=== PATIENT | male | born 1950 | race Caucasian/White ===

== ENCOUNTER 2017-02-19 02:21 | Inpatient (IN) | payer OTHER, MEDICARE ==
[~2017-02-19] VITALS: Ht 175.3 cm; Wt 64.0 kg
[~2017-02-19 02:21] MED LIST: ALBU2.5V12 NEB; ATOR20TA PO; BENZ-16 PO; BUDE10.2 INH; BUPR100T5 PO; BUSP15TA14 PO; CITA20TA19 PO; DEXT30SU5 PO; DIAZ2TAB3 PO; DILT180C95 PO; IPRA3AMP9 IH; LEVO500T2 PO; OMEP20CA10 PO; PRED10TA23 PO; UREA227C4 TP; WARF5TAB7 PO
[2017-02-19] MEDS ORDERED: acetaminophen 325mg tablet PO STA (02:36)
[2017-02-19] MEDS ORDERED: normal saline 1000ML IV soln IV ONE (02:40)
[2017-02-19] MEDS ORDERED: albuterol 2.5 MG/3 ML nebule NEB ONE (02:55)
[2017-02-19] MEDS ORDERED: methylPREDNISolone sod succ 125mg/2ml vial IV ONE (02:55)
[2017-02-19] MEDS ORDERED: ipratropium/albuterol 3ml nebule NEB ONE (02:55)
[2017-02-19 03:06] LABS: BASOPHILS % (AUTO) 0.1 % (0-1); EOSINOPHILS # (AUTO) 0.1 X10'3 (0-0.9); EOSINOPHILS % (AUTO) 0.6 % (0-6); HEMATOCRIT 43.6 % (42.0-52.0); LYMPHOCYTES % (AUTO) 8.4 % (21-51); MEAN CORPUSCULAR HEMOGLOBIN 31.3 PG (27.0-31.0); MEAN CORPUSCULAR HGB CONC 34.3 % (33.0-36.5); MEAN CORPUSCULAR VOLUME 91.3 FL (78-98); MEAN PLATELET VOLUME 7.9 FL (7.4-10.4); MONOCYTES # (AUTO) 1.3 X10'3 (0-0.9); MONOCYTES % (AUTO) 10.6 % (2-12); NEUTROPHILS % (AUTO) 80.3 % (42-75); PLATELET COUNT 309 X10'3 (140-440); RED BLOOD COUNT 4.77 X10'6 (4.70-6.10); RED CELL DISTRIBUTION WIDTH 13.6 % (11.5-14.5); WHITE BLOOD COUNT 12.4 X10'3 (4.5-11.0)
[2017-02-19 03:18] LABS: INR 2.3 INR; PARTIAL THROMBOPLASTIN TIME 37 SECONDS (22-32); PROTHROMBIN TIME 22.7 SECONDS (9.0-12.0)
[2017-02-19 03:24] LABS: ALANINE AMINOTRANSFERASE 40 U/L (12-78); ALBUMIN 3.7 G/DL (3.4-5.0); ALBUMIN/GLOBULIN RATIO 1.1 (1.1-1.5); ALKALINE PHOSPHATASE 136 IU/L (46-116); ANION GAP 10 (8-16); ASPARTATE AMINO TRANSFERASE 24 U/L (10-37); BLOOD UREA NITROGEN 9 MG/DL (7-18); BUN/CREATININE RATIO 9.9 (5.4-32.0); CALCIUM 8.9 MG/DL (8.5-10.1); CHLORIDE 104 MMOL/L (99-107); CREATININE 0.91 MG/DL (0.60-1.10); GLUCOSE 114 MG/DL (70-104); MAGNESIUM 1.7 MG/DL (1.5-2.4); POTASSIUM 4.1 MMOL/L (3.5-5.1); SODIUM 142 MMOL/L (135-145); TOTAL CARBON DIOXIDE 27.9 MMOL/L (24-32); eGFR 83 ML/MIN
[2017-02-19 03:30] LABS: CLARITY,URINE Clear (Clear); COLOR,URINE Yellow (Yellow); GLUCOSE, URINE Negative (Neg); KETONES,URINE Trace mg/dl (Neg); LEUKOCYTE ESTERASE ,URINE Small (Neg); NITRITES, URINE Negative (Neg); OCCULT BLOOD,URINE Negative (Neg); PROTEIN,URINE Negative (Neg)
[2017-02-19 03:31] LABS: UA COLLECTION TYPE VOIDED
[2017-02-19 03:35] LABS: ABG BASE EXCESS -2.4 mmol/L (-2.0-3.0); ABG HCO3 21.8 mmol/L (22.0-26.0); ABG OXYGEN SATURATION 96.8 % (95-98); ABG PCO2 (T) 38.8 mmHg (35.0-48.0); ABG PH (T) 7.375 (7.350-7.450); ABG PO2 (T) 99.9 mmHg (83-108); ALLEN'S TEST Positive; FCOHb 0.9 % (0.5-1.5); FLOW 4 L/min; FMetHb 0.1 % (0.3-1.12); FO2Hb 95.8 % (94-100); PATIENT TEMPERATURE 38.6; TOTAL HEMOGLOBIN 14.1 G/dl (14.0-18.0)
[2017-02-19 03:43] LABS: BACTERIA,URINE FEW /HPF (Neg); MUCUS STRANDS MODERATE /LPF (Neg); RBC,URINE NONE SEEN /HPF (0-2); SQUAMOUS EPITHELIAL CELL,UR FEW /LPF (FEW)
[2017-02-19 03:48] LABS: PLATELET ESTIMATE NORMAL; TOTAL CELLS COUNTED 100
[2017-02-19] MEDS ORDERED: ondansetron/PF 4mg/2ml inj IV PRN (04:25)
[2017-02-19] MEDS ORDERED: HYDROmorphone 1 mg/ml syringe IV PRN ×2 (04:25)
[2017-02-19] MEDS ORDERED: acetaminophen 325mg tablet PO PRN (04:25)
[2017-02-19] MEDS ORDERED: bisacodyl 10mg suppository rectal RC PRN (04:25)
[2017-02-19] MEDS ORDERED: HYDROcodone/acetaminophen 5mg/325mg tablet PO PRN (04:25)
[2017-02-19] MEDS ORDERED: acetaminophen 650mg rectal suppository RC PRN (04:25)
[2017-02-19] MEDS ORDERED: magnesium hydroxide 30ml (MOM) UD suspension PO PRN (04:25)
[2017-02-19] MEDS ORDERED: diphenhydrAMINE 50 mg/ml inj IV PRN (04:25)
[2017-02-19] MEDS ORDERED: diphenhydrAMINE 25mg capsule PO PRN (04:25)
[2017-02-19] MEDS ORDERED: mag hydrox/Alum hydrox/simeth 30ml oral suspension PO PRN (04:25)
[2017-02-19] MEDS ORDERED: metoclopramide 5 mg/ml inj IV PRN (04:25)
[2017-02-19] MEDS ORDERED: diazepam 2mg tablet PO PRN (04:25)
[2017-02-19] MEDS ORDERED: HYDROcodone/acetaminophen 10/325mg tab PO PRN (04:25)
[2017-02-19] MEDS ORDERED: levoFLOXACIN-Levaquin 500mg/D5 100 ML IV ONE (05:50)
[2017-02-19] MEDS: normal saline 1000ml 1,000 ML IV SCH ×2 (05:58→14:22)
[2017-02-19 06:35] LABS: PHOSPHORUS 3.1 MG/DL (2.3-4.5)
[2017-02-19] MEDS ORDERED: CefTRIAXone 2gm/NS 100ml IVPB 100 ML IV SCH (08:00)
[2017-02-19] MEDS ORDERED: UREA TP SCH (08:00)
[2017-02-19] MEDS ORDERED: DEXTROMETHORPHAN POLISTIREX 30 MG PO SCH (08:00)
[2017-02-19] MEDS: ipratropium/albuterol 3ml nebule IH SCH ×4 (08:49→21:08)
[2017-02-19] MEDS: citalopram 20mg tablet PO SCH (08:50)
[2017-02-19] MEDS: atorvastatin 20mg tablet PO SCH (08:50)
[2017-02-19] MEDS: benzonatate 100mg capsule PO SCH ×3 (08:50→20:26)
[2017-02-19] MEDS: docusate sod 100mg capsule PO SCH ×2 (08:50→20:23)
[2017-02-19] MEDS: methylPREDNISolone sod succ 125mg/2ml vial IV SCH ×2 (08:51→20:20)
[2017-02-19] MEDS: azithromycin/NS 500mg/250ml 250 ML IV SCH (08:52)
[2017-02-19] MEDS: pantoprazole 40mg Tablet.DR PO SCH (09:06)
[2017-02-19] MEDS: buPROPion SR 100mg tab PO SCH ×2 (09:53→20:23)
[2017-02-19] MEDS: diltiazem CD 180mg cap (once-daily) PO SCH (09:53)
[2017-02-19 09:56] VITALS: BP 120/72
[2017-02-19 11:00] VITALS: BP 108/59
[2017-02-19] MEDS: CefTRIAXone/dextrose 2GM bag 50 ML IV SCH (13:34)
[2017-02-19] MEDS: lactobacillus rhamnosus 10,000 MMU CELLS/CAPSULE PO SCH (17:49)
[2017-02-19 20:00] VITALS: BP 109/62
[2017-02-19] MEDS: busPIRone 15mg tablet PO SCH (20:25)
[2017-02-19] MEDS: warfarin 5mg tablet PO SCH (20:27)
[2017-02-19] MEDS: temazepam 15mg capsule PO PRN (20:27)
[2017-02-20] VITALS: BP 114/57
[2017-02-20] MEDS: normal saline 1000ml 1,000 ML IV SCH ×4 (02:24→23:05)
[2017-02-20] MEDS: albuterol 2.5 MG/3 ML nebule NEB PRN (03:54)
[2017-02-20 05:35] LABS: BASOPHILS % (AUTO) 0 % (0-1); EOSINOPHILS # (AUTO) 0.1 X10'3 (0-0.9); EOSINOPHILS % (AUTO) 1.3 % (0-6); HEMATOCRIT 35.8 % (42.0-52.0); LYMPHOCYTES # (AUTO) 0.5 X10'3 (1.1-4.8); LYMPHOCYTES % (AUTO) 7.9 % (21-51); MEAN CORPUSCULAR HEMOGLOBIN 30.9 PG (27.0-31.0); MEAN CORPUSCULAR HGB CONC 33.6 % (33.0-36.5); MEAN PLATELET VOLUME 7.9 FL (7.4-10.4); MONOCYTES # (AUTO) 0.3 X10'3 (0-0.9); MONOCYTES % (AUTO) 4.5 % (2-12); NEUTROPHILS # (AUTO) 5.4 X10'3 (1.8-7.7); NEUTROPHILS % (AUTO) 86.3 % (42-75); PLATELET COUNT 231 X10'3 (140-440); RED BLOOD COUNT 3.89 X10'6 (4.70-6.10); WHITE BLOOD COUNT 6.2 X10'3 (4.5-11.0)
[2017-02-20 06:08] LABS: PROTHROMBIN TIME 19.8 SECONDS (9.0-12.0)
[2017-02-20 06:29] LABS: ALANINE AMINOTRANSFERASE 32 U/L (12-78); ALBUMIN 2.8 G/DL (3.4-5.0); ALKALINE PHOSPHATASE 117 IU/L (46-116); ANION GAP 8 (8-16); ASPARTATE AMINO TRANSFERASE 14 U/L (10-37); BILIRUBIN,TOTAL 0.5 MG/DL (0.1-1.0); BLOOD UREA NITROGEN 11 MG/DL (7-18); BUN/CREATININE RATIO 13.4 (5.4-32.0); CALCIUM 8.5 MG/DL (8.5-10.1); CHLORIDE 110 MMOL/L (99-107); CREATININE 0.82 MG/DL (0.60-1.10); GLUCOSE 177 MG/DL (70-104); POTASSIUM 4.1 MMOL/L (3.5-5.1); SODIUM 145 MMOL/L (135-145); TOTAL CARBON DIOXIDE 27.4 MMOL/L (24-32); TOTAL PROTEIN 5.6 G/DL (6.4-8.2); eGFR > 90 ML/MIN
[2017-02-20 07:00] VITALS: BP 113/65
[2017-02-20] MEDS: diltiazem CD 180mg cap (once-daily) PO SCH (07:29)
[2017-02-20] MEDS: atorvastatin 20mg tablet PO SCH (07:29)
[2017-02-20] MEDS: buPROPion SR 100mg tab PO SCH ×2 (07:29→20:31)
[2017-02-20] MEDS: lactobacillus rhamnosus 10,000 MMU CELLS/CAPSULE PO SCH ×2 (07:29→16:39)
[2017-02-20] MEDS: docusate sod 100mg capsule PO SCH ×2 (07:29→20:29)
[2017-02-20] MEDS: pantoprazole 40mg Tablet.DR PO SCH (07:29)
[2017-02-20] MEDS: citalopram 20mg tablet PO SCH (07:30)
[2017-02-20] MEDS: azithromycin/NS 500mg/250ml 250 ML IV SCH (07:30)
[2017-02-20] MEDS: benzonatate 100mg capsule PO SCH ×3 (07:30→20:31)
[2017-02-20] MEDS: methylPREDNISolone sod succ 125mg/2ml vial IV SCH ×2 (07:39→20:29)
[2017-02-20] MEDS: ipratropium/albuterol 3ml nebule IH SCH ×4 (07:53→21:08)
[2017-02-20 11:00] VITALS: BP 117/64
[2017-02-20] MEDS ORDERED: nicotine 21mg patch - 24 hr TD SCH (15:35)
[2017-02-20 19:15] VITALS: BP 125/77
[2017-02-20] MEDS: warfarin 5mg tablet PO SCH (20:30)
[2017-02-20] MEDS: busPIRone 15mg tablet PO SCH (20:30)
[2017-02-20] MEDS: temazepam 15mg capsule PO PRN (20:31)
[2017-02-20 23:35] VITALS: BP 111/53
[2017-02-21] MEDS: albuterol 2.5 MG/3 ML nebule NEB PRN (01:45)
[2017-02-21 05:17] LABS: BASOPHILS % (AUTO) 0 % (0-1); EOSINOPHILS # (AUTO) 0.1 X10'3 (0-0.9); EOSINOPHILS % (AUTO) 1.2 % (0-6); HEMATOCRIT 34.7 % (42.0-52.0); HEMOGLOBIN 11.4 g/dl (14.0-17.9); LYMPHOCYTES # (AUTO) 0.4 X10'3 (1.1-4.8); LYMPHOCYTES % (AUTO) 5.1 % (21-51); MEAN CORPUSCULAR HEMOGLOBIN 30.6 PG (27.0-31.0); MEAN CORPUSCULAR HGB CONC 32.9 % (33.0-36.5); MEAN PLATELET VOLUME 7.9 FL (7.4-10.4); MONOCYTES # (AUTO) 0.3 X10'3 (0-0.9); MONOCYTES % (AUTO) 3.5 % (2-12); NEUTROPHILS # (AUTO) 6.9 X10'3 (1.8-7.7); NEUTROPHILS % (AUTO) 90.2 % (42-75); PLATELET COUNT 256 X10'3 (140-440); RED BLOOD COUNT 3.74 X10'6 (4.70-6.10); WHITE BLOOD COUNT 7.7 X10'3 (4.5-11.0)
[2017-02-21 05:29] LABS: INR 1.7 INR; PROTHROMBIN TIME 17.6 SECONDS (9.0-12.0)
[2017-02-21 06:13] LABS: ALANINE AMINOTRANSFERASE 34 U/L (12-78); ALBUMIN 2.8 G/DL (3.4-5.0); ALBUMIN/GLOBULIN RATIO 1.1 (1.1-1.5); ALKALINE PHOSPHATASE 109 IU/L (46-116); ANION GAP 4 (8-16); ASPARTATE AMINO TRANSFERASE 14 U/L (10-37); BILIRUBIN,TOTAL 0.4 MG/DL (0.1-1.0); BLOOD UREA NITROGEN 10 MG/DL (7-18); BUN/CREATININE RATIO 15.2 (5.4-32.0); CALCIUM 8.6 MG/DL (8.5-10.1); CHLORIDE 110 MMOL/L (99-107); CREATININE 0.66 MG/DL (0.60-1.10); GLUCOSE 203 MG/DL (70-104); POTASSIUM 3.9 MMOL/L (3.5-5.1); SODIUM 145 MMOL/L (135-145); TOTAL CARBON DIOXIDE 31.4 MMOL/L (24-32); TOTAL PROTEIN 5.4 G/DL (6.4-8.2); eGFR > 90 ML/MIN
[2017-02-21] MEDS: ipratropium/albuterol 3ml nebule IH SCH (06:55)
[2017-02-21 07:00] VITALS: BP 124/70
[2017-02-21] MEDS: benzonatate 100mg capsule PO SCH (07:14)
[2017-02-21] MEDS: diltiazem CD 180mg cap (once-daily) PO SCH (07:14)
[2017-02-21] MEDS: buPROPion SR 100mg tab PO SCH (07:14)
[2017-02-21] MEDS: docusate sod 100mg capsule PO SCH (07:15)
[2017-02-21] MEDS: pantoprazole 40mg Tablet.DR PO SCH (07:15)
[2017-02-21] MEDS: lactobacillus rhamnosus 10,000 MMU CELLS/CAPSULE PO SCH (07:15)
[2017-02-21] MEDS: methylPREDNISolone sod succ 125mg/2ml vial IV SCH (07:15)
[2017-02-21] MEDS: citalopram 20mg tablet PO SCH (07:15)
[2017-02-21] MEDS: atorvastatin 20mg tablet PO SCH (07:15)
[2017-02-21] MEDS ORDERED: azithromycin 250mg tablet PO SCH (08:00)
[2017-02-21] MEDS: CefTRIAXone/dextrose 2GM bag 50 ML IV SCH (08:18)
[2017-02-21] MEDS: normal saline 1000ml 1,000 ML IV SCH (09:28)
[2017-02-21] MEDS ORDERED: AZI25OT PO (10:40)
[2017-02-21] MEDS ORDERED: CEFD300C3 PO (10:40)
[2017-02-21] MEDS ORDERED: LACT1CAP26 PO (10:40)
[2017-02-21] MEDS ORDERED: PRED20TA PO (10:40)
[2017-02-21 11:00] VITALS: BP 131/76
[2017-02-21] MEDS ORDERED: ipratropium/albuterol 3ml nebule IH SCH (11:00)
== END 2017-02-21 14:30 | disposition home health service (06) | DRG 189 ==
LOC: ER 02:22 → ED HOLD 04:22 → SUR 3N 08:34
PROVIDERS: ADMIT Family Medicine; ATTEND Family Medicine
DX: J96.01 Acute respiratory failure with hypoxia (principal); J18.9 Pneumonia, unspecified organism; I48.91 Unspecified atrial fibrillation; J44.0 Chronic obstructive pulmonary disease with (acute) lower respiratory infection; J44.1 Chronic obstructive pulmonary disease with (acute) exacerbation; N39.0 Urinary tract infection, site not specified; Z99.81 Dependence on supplemental oxygen; Z88.5 Allergy status to narcotic agent; Z79.51 Long term (current) use of inhaled steroids; Z79.01 Long term (current) use of anticoagulants; Z79.899 Other long term (current) drug therapy; Z79.52 Long term (current) use of systemic steroids; Z87.891 Personal history of nicotine dependence
CPT/HCPCS: 36415; 36600; 70450; 71045; 80053; 81001; 82803; 83605; 83735; 83880; 84100; 84145; 85018; 85025; 85610; 85730; 87040; 87070; 87088; 93005; 94640; 94760; 96374; 99291; J0456; J0696; J1956; J2930; J7030

== ENCOUNTER 2017-04-30 15:28 | Emergency (ER) | payer OTHER, MEDICARE ==
[~2017-04-30] VITALS: Ht 175.3 cm; Wt 66.4 kg
[~2017-04-30 15:28] MED LIST changes: +AZI25OT PO; -BENZ-16 PO; +LACT1CAP26 PO; -LEVO500T2 PO; -PRED10TA23 PO
[2017-04-30] MEDS ORDERED: levoFLOXACIN 750MG TABLET PO ONE (15:40)
[2017-04-30] MEDS ORDERED: PRED20TA PO (16:35)
[2017-04-30] MEDS ORDERED: LEVO500T89 PO (16:35)
[2017-04-30 17:06] VITALS: BP 133/94
== END 2017-04-30 17:07 | disposition home or self-care (01) ==
LOC: ER 15:29
DX: J44.1 Chronic obstructive pulmonary disease with (acute) exacerbation (principal); I48.91 Unspecified atrial fibrillation; Z88.5 Allergy status to narcotic agent; Z79.01 Long term (current) use of anticoagulants; Z99.81 Dependence on supplemental oxygen
CPT/HCPCS: 71045; 93005; 99284

== ENCOUNTER 2017-11-10 08:27 | Emergency (ER) | payer MEDICARE, OTHER ==
[~2017-11-10] VITALS: Ht 175.3 cm; Wt 68.2 kg
[~2017-11-10 08:27] MED LIST changes: +PRED10TA PO; +WARF-55 PO; -WARF5TAB7 PO
[2017-11-10] MEDS ORDERED: ipratropium/albuterol 3ml nebule NEB ONE (08:45)
[2017-11-10] MEDS ORDERED: LORazepam 0.5 MG tablet PO PRN (08:50)
[2017-11-10] MEDS ORDERED: LORazepam 2 mg/ml vial IV ONE (09:05)
[2017-11-10] MEDS ORDERED: methylPREDNISolone sod succ 125mg/2ml vial IV ONE (09:15)
[2017-11-10 10:02] VITALS: BP 128/73
== END 2017-11-10 10:07 | disposition home or self-care (01) ==
LOC: ER 08:28
DX: J44.1 Chronic obstructive pulmonary disease with (acute) exacerbation (principal); I48.91 Unspecified atrial fibrillation; Z87.891 Personal history of nicotine dependence; Z88.5 Allergy status to narcotic agent; Z79.2 Long term (current) use of antibiotics; Z79.01 Long term (current) use of anticoagulants; Z79.899 Other long term (current) drug therapy
CPT/HCPCS: 70360; 71046; 93005; 94640; 94760; 96374; 96375; 99284; J2060; J2930

== ENCOUNTER 2018-01-05 12:26 | Inpatient (IN) | payer MEDICARE, OTHER ==
[~2018-01-05] VITALS: Ht 175.3 cm; Wt 62.5 kg
[2018-01-05] MEDS ORDERED: ipratropium/albuterol 3ml nebule NEB ONE (12:50)
[2018-01-05] MEDS ORDERED: methylPREDNISolone sod succ 125mg/2ml vial IV ONE (12:50)
[2018-01-05] MEDS ORDERED: albuterol 2.5 MG/3 ML nebule CONTNEB PRN (12:55)
[2018-01-05] MEDS ORDERED: ipratropium 0.5 MG/2.5ML nebule IH ONE (12:55)
[2018-01-05 13:14] LABS: BASOPHILS % (AUTO) 0.3 % (0-1); EOSINOPHILS # (AUTO) 0.3 X10'3 (0-0.9); EOSINOPHILS % (AUTO) 2.3 % (0-6); HEMATOCRIT 44.2 % (42.0-52.0); HEMOGLOBIN 14.7 g/dl (14.0-17.9); LYMPHOCYTES # (AUTO) 1.3 X10'3 (1.1-4.8); LYMPHOCYTES % (AUTO) 12.2 % (21-51); MEAN CORPUSCULAR HEMOGLOBIN 30.2 PG (27.0-31.0); MEAN CORPUSCULAR HGB CONC 33.3 % (33.0-36.5); MEAN CORPUSCULAR VOLUME 90.7 FL (78-98); MEAN PLATELET VOLUME 7.5 FL (7.4-10.4); MONOCYTES # (AUTO) 0.8 X10'3 (0-0.9); MONOCYTES % (AUTO) 7.2 % (2-12); NEUTROPHILS # (AUTO) 8.6 X10'3 (1.8-7.7); PLATELET COUNT 288 X10'3 (140-440); RED BLOOD COUNT 4.88 X10'6 (4.70-6.10); RED CELL DISTRIBUTION WIDTH 14.4 % (11.5-14.5)
[2018-01-05] MEDS: magnesium 1gm/100ml D5W IVPB 100 ML IV SCH ×2 (13:17→14:22)
[2018-01-05] MEDS ORDERED: racepinephrine 11.25mg/0.5ml nebule IH ONE (13:20)
[2018-01-05 13:29] LABS: ALANINE AMINOTRANSFERASE 42 U/L (12-78); ALBUMIN 3.8 G/DL (3.4-5.0); ALBUMIN/GLOBULIN RATIO 1.2 (1.1-1.5); ALKALINE PHOSPHATASE 172 IU/L (46-116); ANION GAP 6 (8-16); ASPARTATE AMINO TRANSFERASE 24 U/L (10-37); BILIRUBIN,TOTAL 0.6 MG/DL (0.1-1.0); BLOOD UREA NITROGEN 16 MG/DL (7-18); BUN/CREATININE RATIO 20.5 (5.4-32.0); CALCIUM 8.8 MG/DL (8.5-10.1); CHLORIDE 104 MMOL/L (99-107); CREATININE 0.78 MG/DL (0.60-1.10); GLUCOSE 106 MG/DL (70-104); POTASSIUM 4.4 MMOL/L (3.5-5.1); SODIUM 143 MMOL/L (135-145); TOTAL CARBON DIOXIDE 33.4 MMOL/L (24-32); TOTAL PROTEIN 6.9 G/DL (6.4-8.2); eGFR > 90 ML/MIN
[2018-01-05 13:36] LABS: TROPONIN I < 0.04 NG/ML (0.0-0.05)
[2018-01-05] MEDS ORDERED: ALB0.5UD IH (14:18)
[2018-01-05] MEDS ORDERED: BUPR150T8 PO (14:18)
[2018-01-05] MEDS ORDERED: DOCU100C41 PO (14:18)
[2018-01-05] MEDS ORDERED: DIAZ2TAB3 PO (14:18)
[2018-01-05 14:31] LABS: ABG BASE EXCESS 1.1 mmol/L (-2.0-3.0); ABG HCO3 29.4 mmol/L (22.0-26.0); ABG OXYGEN SATURATION 88.4 % (95-98); ABG PCO2 (T) 62.6 mmHg (35.0-48.0); ABG PO2 (T) 59.3 mmHg (83-108); FCOHb 0.4 % (0.5-1.5); FLOW 8 L/min; FMetHb 0.2 % (0.3-1.12); FO2Hb 87.9 % (94-100); TOTAL HEMOGLOBIN 14.8 G/dl (14.0-18.0)
[2018-01-05] MEDS ORDERED: BUSP10TA11 PO (14:31)
[2018-01-05] MEDS ORDERED: levoFLOXACIN-Levaquin 500mg/D5 100 ML IV ONE (15:10)
[2018-01-05] MEDS ORDERED: magnesium 1gm/100ml D5W IVPB 100 ML IV PRN (16:00)
[2018-01-05] MEDS ORDERED: potassium Cl 40MEQ/NS 500ml 500 ML IV PRN ×2 (16:00)
[2018-01-05] MEDS ORDERED: potassium Cl 20 mEq SR tablet PO PRN ×2 (16:00)
[2018-01-05] MEDS ORDERED: magnesium 4gm in 100ml NS 100 ML IV PRN (16:00)
[2018-01-05] MEDS ORDERED: magnesium Cl slow-release 64mg tablet PO PRN (16:00)
[2018-01-05] MEDS ORDERED: magnesium hydroxide 30ml (MOM) UD suspension PO PRN (16:00)
[2018-01-05] MEDS ORDERED: mag hydrox/Alum hydrox/simeth 30ml oral suspension PO PRN (16:00)
[2018-01-05] MEDS ORDERED: ondansetron/PF 4mg/2ml inj IV PRN (16:00)
[2018-01-05] MEDS ORDERED: acetaminophen 325mg tablet PO PRN ×2 (16:00)
[2018-01-05] MEDS: normal saline 1000ml 1,000 ML IV SCH (16:33)
[2018-01-05 17:01] LABS: ABG BASE EXCESS 1.8 mmol/L (-2.0-3.0); ABG OXYGEN SATURATION 98.2 % (95-98); ABG PCO2 (T) 39.4 mmHg (35.0-48.0); ABG PH (T) 7.437 (7.350-7.450); ABG PO2 (T) 123.7 mmHg (83-108); ALLEN'S TEST Positive; FCOHb 0.6 % (0.5-1.5); FMetHb 0.1 % (0.3-1.12); FO2Hb 97.5 % (94-100); MINUTE VOLUME 17 L/min; RESPIRATORY RATE 12 b/min; RESPIRATORY RATE (OBSERVED) 14 b/min; TIDAL VOLUME 1178 mL; TOTAL HEMOGLOBIN 14.2 G/dl (14.0-18.0)
[2018-01-05] MEDS: albuterol 2.5 MG/3 ML nebule NEB SCH ×3 (17:27→23:15)
[2018-01-05 19:30] VITALS: BP 121/109
[2018-01-05] MEDS ORDERED: non-formulary drug (Budesonide/Formoterol Fumarate (Symbicort 160-4.5 Mcg Inhaler) 2 PUFFS INH SCH (20:00)
[2018-01-05] MEDS: budesonide 0.5mg/2ml UD nebule IH SCH (20:01)
[2018-01-05] MEDS: pantoprazole 40mg Tablet.DR PO SCH (20:59)
[2018-01-05] MEDS: buPROPion SR 150mg tablet PO SCH (20:59)
[2018-01-05] MEDS: busPIRone 5mg tablet PO SCH (20:59)
[2018-01-05] MEDS ORDERED: temazepam 15mg capsule PO PRN (21:00)
[2018-01-05] MEDS: heparin, porcine 5000 units/ml vial SQ SCH (21:00)
[2018-01-05 23:00] VITALS: BP 121/109
[2018-01-06] VITALS (11 sets, daily range): BP systolic 104–149; BP diastolic 56–103
[2018-01-06] MEDS: albuterol 2.5 MG/3 ML nebule NEB SCH ×2 (03:17→08:25)
[2018-01-06 05:11] LABS: BASOPHILS % (AUTO) 0 % (0-1); EOSINOPHILS # (AUTO) 0.1 X10'3 (0-0.9); EOSINOPHILS % (AUTO) 1.2 % (0-6); HEMATOCRIT 38.8 % (42.0-52.0); HEMOGLOBIN 12.8 g/dl (14.0-17.9); LYMPHOCYTES # (AUTO) 0.5 X10'3 (1.1-4.8); LYMPHOCYTES % (AUTO) 4.8 % (21-51); MEAN CORPUSCULAR HEMOGLOBIN 30.1 PG (27.0-31.0); MEAN CORPUSCULAR VOLUME 91.3 FL (78-98); MONOCYTES # (AUTO) 0.4 X10'3 (0-0.9); MONOCYTES % (AUTO) 4.1 % (2-12); NEUTROPHILS # (AUTO) 9.5 X10'3 (1.8-7.7); NEUTROPHILS % (AUTO) 89.9 % (42-75); PLATELET COUNT 240 X10'3 (140-440); RED BLOOD COUNT 4.25 X10'6 (4.70-6.10); RED CELL DISTRIBUTION WIDTH 14.3 % (11.5-14.5); WHITE BLOOD COUNT 10.5 X10'3 (4.5-11.0)
[2018-01-06 06:18] LABS: ALBUMIN 3.2 G/DL (3.4-5.0); ANION GAP 4 (8-16); BLOOD UREA NITROGEN 18 MG/DL (7-18); BUN/CREATININE RATIO 18.9 (5.4-32.0); CALCIUM 8.6 MG/DL (8.5-10.1); CHLORIDE 105 MMOL/L (99-107); CREATININE 0.95 MG/DL (0.60-1.10); GLUCOSE 179 MG/DL (70-104); MAGNESIUM 2.2 MG/DL (1.5-2.4); POTASSIUM 4.1 MMOL/L (3.5-5.1); SODIUM 141 MMOL/L (135-145); TOTAL CARBON DIOXIDE 31.7 MMOL/L (24-32); eGFR 79 ML/MIN
[2018-01-06] MEDS: CefTRIAXone 2gm/D5W 50ml 50 ML IV SCH (07:47)
[2018-01-06] MEDS: heparin, porcine 5000 units/ml vial SQ SCH ×2 (07:47→20:20)
[2018-01-06] MEDS: diltiazem CD 180mg cap (once-daily) PO SCH (07:48)
[2018-01-06] MEDS: atorvastatin 20mg tablet PO SCH (07:48)
[2018-01-06] MEDS: buPROPion SR 150mg tablet PO SCH ×2 (07:48→20:19)
[2018-01-06] MEDS: pantoprazole 40mg Tablet.DR PO SCH ×2 (07:48→20:20)
[2018-01-06] MEDS: busPIRone 5mg tablet PO SCH ×2 (07:48→20:20)
[2018-01-06] MEDS ORDERED: methylPREDNISolone sod succ 125mg/2ml vial IV SCH (08:00)
[2018-01-06] MEDS: K and/or MAG REPLACEMENT MC SCH (08:00)
[2018-01-06] MEDS: budesonide 0.5mg/2ml UD nebule IH SCH ×2 (08:25→20:11)
[2018-01-06] MEDS ORDERED: ipratropium/albuterol 3ml nebule NEB PRN (08:40)
[2018-01-06] MEDS: levoFLOXACIN-Levaquin 500mg/D5 100 ML IV SCH (11:02)
[2018-01-06] MEDS: ipratropium/albuterol 3ml nebule NEB SCH ×3 (11:32→20:11)
[2018-01-06] MEDS: methylPREDNISolone sod succ 125mg/2ml vial IV SCH (16:10)
[2018-01-07] VITALS (7 sets, daily range): BP systolic 106–138; BP diastolic 44–75
[2018-01-07] MEDS: ipratropium/albuterol 3ml nebule NEB SCH ×6 (00:19→22:57)
[2018-01-07] MEDS: methylPREDNISolone sod succ 125mg/2ml vial IV SCH ×3 (00:59→16:32)
[2018-01-07 05:16] LABS: BASOPHILS % (AUTO) 0 % (0-1); EOSINOPHILS # (AUTO) 0.1 X10'3 (0-0.9); EOSINOPHILS % (AUTO) 1.3 % (0-6); HEMATOCRIT 39.8 % (42.0-52.0); HEMOGLOBIN 13.3 g/dl (14.0-17.9); LYMPHOCYTES # (AUTO) 0.3 X10'3 (1.1-4.8); MEAN CORPUSCULAR HEMOGLOBIN 30.4 PG (27.0-31.0); MEAN CORPUSCULAR HGB CONC 33.4 % (33.0-36.5); MEAN PLATELET VOLUME 8.1 FL (7.4-10.4); MONOCYTES # (AUTO) 0.3 X10'3 (0-0.9); MONOCYTES % (AUTO) 2.3 % (2-12); NEUTROPHILS # (AUTO) 10.5 X10'3 (1.8-7.7); NEUTROPHILS % (AUTO) 93.4 % (42-75); PLATELET COUNT 267 X10'3 (140-440); RED BLOOD COUNT 4.37 X10'6 (4.70-6.10); RED CELL DISTRIBUTION WIDTH 14.8 % (11.5-14.5); WHITE BLOOD COUNT 11.3 X10'3 (4.5-11.0)
[2018-01-07 05:39] LABS: ALBUMIN 3.2 G/DL (3.4-5.0); ANION GAP 5 (8-16); BLOOD UREA NITROGEN 15 MG/DL (7-18); BUN/CREATININE RATIO 15.8 (5.4-32.0); CALCIUM 8.9 MG/DL (8.5-10.1); CHLORIDE 103 MMOL/L (99-107); CREATININE 0.95 MG/DL (0.60-1.10); GLUCOSE 256 MG/DL (70-104); MAGNESIUM 2.1 MG/DL (1.5-2.4); POTASSIUM 4.5 MMOL/L (3.5-5.1); SODIUM 142 MMOL/L (135-145); TOTAL CARBON DIOXIDE 33.9 MMOL/L (24-32); eGFR 79 ML/MIN
[2018-01-07] MEDS: budesonide 0.5mg/2ml UD nebule IH SCH ×2 (07:58→19:45)
[2018-01-07] MEDS: K and/or MAG REPLACEMENT MC SCH (08:00)
[2018-01-07 09:06] LABS: ABG BASE EXCESS 2.2 mmol/L (-2.0-3.0); ABG OXYGEN SATURATION 97.6 % (95-98); ABG PCO2 (T) 42.7 mmHg (35.0-48.0); ABG PH (T) 7.419 (7.350-7.450); ALLEN'S TEST Positive; FCOHb 0.3 % (0.5-1.5); FMetHb 0.1 % (0.3-1.12); FO2Hb 97.2 % (94-100); MINUTE VOLUME 17 L/min; RESPIRATORY RATE (OBSERVED) 25 b/min; TOTAL HEMOGLOBIN 13.9 G/dl (14.0-18.0)
[2018-01-07] MEDS: buPROPion SR 150mg tablet PO SCH ×2 (09:47→21:15)
[2018-01-07] MEDS: atorvastatin 20mg tablet PO SCH (09:47)
[2018-01-07] MEDS: diltiazem CD 180mg cap (once-daily) PO SCH (09:47)
[2018-01-07] MEDS: busPIRone 5mg tablet PO SCH ×2 (09:47→21:14)
[2018-01-07] MEDS: pantoprazole 40mg Tablet.DR PO SCH ×2 (09:47→21:15)
[2018-01-07] MEDS: levoFLOXACIN-Levaquin 500mg/D5 100 ML IV SCH (09:48)
[2018-01-07] MEDS: CefTRIAXone 2gm/D5W 50ml 50 ML IV SCH (09:48)
[2018-01-07] MEDS: heparin, porcine 5000 units/ml vial SQ SCH ×2 (10:08→21:15)
[2018-01-07] MEDS: normal saline 1000ml 1,000 ML IV SCH (16:35)
[2018-01-07] MEDS ORDERED: LORazepam 2 mg/ml vial IV PRN (17:20)
[2018-01-07] MEDS: lactobacillus rhamnosus 10,000 MMU CELLS/CAPSULE PO SCH (21:15)
[2018-01-08] MEDS: methylPREDNISolone sod succ 125mg/2ml vial IV SCH ×2 (00:19→08:20)
[2018-01-08 02:00] VITALS: BP_SYST 125; BP_DIAS 50; BP_DIAS 56
[2018-01-08 04:00] VITALS: BP 122/70
[2018-01-08 05:06] LABS: BASOPHILS % (AUTO) 0 % (0-1); EOSINOPHILS # (AUTO) 0.2 X10'3 (0-0.9); EOSINOPHILS % (AUTO) 1.5 % (0-6); HEMATOCRIT 39.8 % (42.0-52.0); LYMPHOCYTES # (AUTO) 0.3 X10'3 (1.1-4.8); LYMPHOCYTES % (AUTO) 3.3 % (21-51); MEAN CORPUSCULAR HGB CONC 32.8 % (33.0-36.5); MEAN CORPUSCULAR VOLUME 91.6 FL (78-98); MEAN PLATELET VOLUME 7.8 FL (7.4-10.4); MONOCYTES # (AUTO) 0.3 X10'3 (0-0.9); MONOCYTES % (AUTO) 2.4 % (2-12); NEUTROPHILS # (AUTO) 9.7 X10'3 (1.8-7.7); NEUTROPHILS % (AUTO) 92.8 % (42-75); PLATELET COUNT 270 X10'3 (140-440); RED BLOOD COUNT 4.35 X10'6 (4.70-6.10); RED CELL DISTRIBUTION WIDTH 14.8 % (11.5-14.5); WHITE BLOOD COUNT 10.4 X10'3 (4.5-11.0)
[2018-01-08 05:31] LABS: ALBUMIN 3.1 G/DL (3.4-5.0); ANION GAP 4 (8-16); BLOOD UREA NITROGEN 13 MG/DL (7-18); BUN/CREATININE RATIO 13.1 (5.4-32.0); CALCIUM 8.9 MG/DL (8.5-10.1); CHLORIDE 103 MMOL/L (99-107); CREATININE 0.99 MG/DL (0.60-1.10); GLUCOSE 217 MG/DL (70-104); POTASSIUM 4.4 MMOL/L (3.5-5.1); SODIUM 142 MMOL/L (135-145); eGFR 75 ML/MIN
[2018-01-08 06:00] VITALS: BP 122/62
[2018-01-08] MEDS: K and/or MAG REPLACEMENT MC SCH (07:14)
[2018-01-08] MEDS: budesonide 0.5mg/2ml UD nebule IH SCH ×2 (07:43→21:00)
[2018-01-08] MEDS: ipratropium/albuterol 3ml nebule NEB SCH ×5 (07:43→23:59)
[2018-01-08] MEDS: atorvastatin 20mg tablet PO SCH (08:19)
[2018-01-08] MEDS: buPROPion SR 150mg tablet PO SCH ×2 (08:19→20:02)
[2018-01-08] MEDS: diltiazem CD 180mg cap (once-daily) PO SCH (08:19)
[2018-01-08] MEDS: busPIRone 5mg tablet PO SCH ×2 (08:19→20:02)
[2018-01-08] MEDS: lactobacillus rhamnosus 10,000 MMU CELLS/CAPSULE PO SCH ×2 (08:20→20:04)
[2018-01-08] MEDS: pantoprazole 40mg Tablet.DR PO SCH ×2 (08:20→20:03)
[2018-01-08] MEDS: CefTRIAXone 2gm/D5W 50ml 50 ML IV SCH (08:20)
[2018-01-08] MEDS: heparin, porcine 5000 units/ml vial SQ SCH ×2 (08:22→20:01)
[2018-01-08 11:00] VITALS: BP 131/74
[2018-01-08] MEDS: levoFLOXACIN 500mg tablet PO SCH (11:34)
[2018-01-08] MEDS: predniSONE 20 mg tablet PO SCH (15:19)
[2018-01-08] MEDS: diazepam 2mg tablet PO SCH (16:01)
[2018-01-08 18:00] VITALS: BP 121/75
[2018-01-08] MEDS: docusate sod 100mg capsule PO SCH (20:00)
[2018-01-08 22:00] VITALS: BP 136/71
[2018-01-09] MEDS: diazepam 2mg tablet PO SCH ×2 (00:52→08:44)
[2018-01-09 02:00] VITALS: BP 107/76
[2018-01-09] MEDS: ipratropium/albuterol 3ml nebule NEB SCH ×3 (04:16→10:56)
[2018-01-09 06:00] VITALS: BP 133/71
[2018-01-09 06:01] LABS: BASOPHILS % (AUTO) 0.2 % (0-1); EOSINOPHILS # (AUTO) 0.1 X10'3 (0-0.9); EOSINOPHILS % (AUTO) 1.1 % (0-6); HEMATOCRIT 40.8 % (42.0-52.0); HEMOGLOBIN 13.4 g/dl (14.0-17.9); LYMPHOCYTES # (AUTO) 0.8 X10'3 (1.1-4.8); LYMPHOCYTES % (AUTO) 7.7 % (21-51); MEAN CORPUSCULAR HEMOGLOBIN 29.9 PG (27.0-31.0); MEAN CORPUSCULAR HGB CONC 32.8 % (33.0-36.5); MEAN CORPUSCULAR VOLUME 91.4 FL (78-98); MEAN PLATELET VOLUME 7.9 FL (7.4-10.4); MONOCYTES # (AUTO) 0.7 X10'3 (0-0.9); MONOCYTES % (AUTO) 6.8 % (2-12); NEUTROPHILS # (AUTO) 8.6 X10'3 (1.8-7.7); NEUTROPHILS % (AUTO) 84.2 % (42-75); PLATELET COUNT 265 X10'3 (140-440); RED BLOOD COUNT 4.46 X10'6 (4.70-6.10); RED CELL DISTRIBUTION WIDTH 14.6 % (11.5-14.5); WHITE BLOOD COUNT 10.2 X10'3 (4.5-11.0)
[2018-01-09 06:17] LABS: ALBUMIN 3.3 G/DL (3.4-5.0); ANION GAP 3 (8-16); BLOOD UREA NITROGEN 15 MG/DL (7-18); BUN/CREATININE RATIO 20.5 (5.4-32.0); CHLORIDE 104 MMOL/L (99-107); CREATININE 0.73 MG/DL (0.60-1.10); GLUCOSE 175 MG/DL (70-104); SODIUM 144 MMOL/L (135-145); TOTAL CARBON DIOXIDE 36.9 MMOL/L (24-32); eGFR > 90 ML/MIN
[2018-01-09] MEDS: K and/or MAG REPLACEMENT MC SCH (06:44)
[2018-01-09] MEDS: docusate sod 100mg capsule PO SCH (08:00)
[2018-01-09] MEDS: budesonide 0.5mg/2ml UD nebule IH SCH (08:00)
[2018-01-09] MEDS: predniSONE 20 mg tablet PO SCH (08:43)
[2018-01-09] MEDS: diltiazem CD 180mg cap (once-daily) PO SCH (08:44)
[2018-01-09] MEDS: lactobacillus rhamnosus 10,000 MMU CELLS/CAPSULE PO SCH (08:45)
[2018-01-09] MEDS: pantoprazole 40mg Tablet.DR PO SCH (08:45)
[2018-01-09] MEDS: busPIRone 5mg tablet PO SCH (08:45)
[2018-01-09] MEDS: buPROPion SR 150mg tablet PO SCH (08:45)
[2018-01-09] MEDS: atorvastatin 20mg tablet PO SCH (08:45)
[2018-01-09] MEDS: heparin, porcine 5000 units/ml vial SQ SCH (08:46)
[2018-01-09] MEDS: CefTRIAXone 2gm/D5W 50ml 50 ML IV SCH (08:47)
[2018-01-09 11:00] VITALS: BP 125/75
[2018-01-09] MEDS: levoFLOXACIN 500mg tablet PO SCH (12:24)
[2018-01-09] MEDS ORDERED: LEVO500T89 PO (12:46)
[2018-01-09] MEDS ORDERED: PRED20TA PO (12:46)
== END 2018-01-09 16:13 | disposition home or self-care (01) | DRG 189 ==
LOC: ER 12:26 → ED HOLD 15:57 → EDBEDREQ 16:19 → PCU 3S 19:15
PROVIDERS: ADMIT Internal Medicine; ATTEND Hospitalist
PROC: 5A09357 Assistance with Respiratory Ventilation, Less than 24 Consecutive Hours, Continuous Positive Airway Pressure (ICD-10-PCS; principal; 2018-01-05)
PROC: 5A09357 Assistance with Respiratory Ventilation, Less than 24 Consecutive Hours, Continuous Positive Airway Pressure (ICD-10-PCS; 2018-01-06)
PROC: 5A09357 Assistance with Respiratory Ventilation, Less than 24 Consecutive Hours, Continuous Positive Airway Pressure (ICD-10-PCS; 2018-01-07)
DX: J96.22 Acute and chronic respiratory failure with hypercapnia (principal); J44.1 Chronic obstructive pulmonary disease with (acute) exacerbation; J44.0 Chronic obstructive pulmonary disease with (acute) lower respiratory infection; I48.91 Unspecified atrial fibrillation; E78.5 Hyperlipidemia, unspecified; F41.0 Panic disorder [episodic paroxysmal anxiety]; R29.6 Repeated falls; Z99.81 Dependence on supplemental oxygen; Z88.5 Allergy status to narcotic agent; Z79.899 Other long term (current) drug therapy; Z79.01 Long term (current) use of anticoagulants; Z87.891 Personal history of nicotine dependence
CPT/HCPCS: 36415; 36600; 71045; 80048; 80053; 82570; 82803; 83605; 83735; 83880; 83935; 84145; 84300; 84484; 85018; 85025; 87040; 87070; 93005; 94640; 94644; 94660; 94667; 94668; 94760; 96365; 96367; 96375; 99285; G0378; J0696; J1644; J1956; J2060; J2930; J7030; J7512; J7626

== ENCOUNTER 2018-02-03 08:33 | Emergency (ER) | payer MEDICARE, OTHER ==
[~2018-02-03] VITALS: Ht 175.3 cm; Wt 69.1 kg
[~2018-02-03 08:33] MED LIST changes: +ALB0.5UD IH; -ALBU2.5V12 NEB; -AZI25OT PO; -BUPR100T5 PO; +BUPR150T8 PO; +BUSP10TA11 PO; -BUSP15TA14 PO; -CITA20TA19 PO; -DEXT30SU5 PO; +DOCU100C41 PO; -LACT1CAP26 PO; +LEVO500T89 PO; -PRED10TA PO; +PRED20TA PO; -UREA227C4 TP; -WARF-55 PO
[2018-02-03] MEDS ORDERED: morphine 4 MG/ML inj SYRINge IV ONE (08:50)
[2018-02-03] MEDS ORDERED: ondansetron/PF 4mg/2ml inj IV ONE (08:50)
[2018-02-03 09:11] LABS: BASOPHILS % (AUTO) 0 % (0-1); EOSINOPHILS # (AUTO) 0.1 X10'3 (0-0.9); EOSINOPHILS % (AUTO) 1.5 % (0-6); HEMATOCRIT 42.4 % (42.0-52.0); LYMPHOCYTES # (AUTO) 0.2 X10'3 (1.1-4.8); LYMPHOCYTES % (AUTO) 2.3 % (21-51); MEAN CORPUSCULAR HEMOGLOBIN 30.5 PG (27.0-31.0); MEAN CORPUSCULAR HGB CONC 33.1 % (33.0-36.5); MEAN CORPUSCULAR VOLUME 92.2 FL (78-98); MEAN PLATELET VOLUME 7.6 FL (7.4-10.4); MONOCYTES # (AUTO) 0.3 X10'3 (0-0.9); MONOCYTES % (AUTO) 3.4 % (2-12); NEUTROPHILS # (AUTO) 8.7 X10'3 (1.8-7.7); NEUTROPHILS % (AUTO) 92.8 % (42-75); PLATELET COUNT 261 X10'3 (140-440); RED CELL DISTRIBUTION WIDTH 15.4 % (11.5-14.5); WHITE BLOOD COUNT 9.4 X10'3 (4.5-11.0)
[2018-02-03 09:29] LABS: ALANINE AMINOTRANSFERASE 59 U/L (12-78); ALBUMIN 3.3 G/DL (3.4-5.0); ALBUMIN/GLOBULIN RATIO 1.3 (1.1-1.5); ALKALINE PHOSPHATASE 190 IU/L (46-116); ANION GAP 5 (8-16); ASPARTATE AMINO TRANSFERASE 20 U/L (10-37); BILIRUBIN,TOTAL 0.7 MG/DL (0.1-1.0); BLOOD UREA NITROGEN 14 MG/DL (7-18); BUN/CREATININE RATIO 19.7 (5.4-32.0); CALCIUM 8.3 MG/DL (8.5-10.1); CHLORIDE 104 MMOL/L (99-107); CREATININE 0.71 MG/DL (0.60-1.10); GLUCOSE 304 MG/DL (70-104); POTASSIUM 4.3 MMOL/L (3.5-5.1); SODIUM 142 MMOL/L (135-145); TOTAL CARBON DIOXIDE 33.5 MMOL/L (24-32); TOTAL PROTEIN 5.8 G/DL (6.4-8.2); eGFR > 90 ML/MIN
[2018-02-03] MEDS ORDERED: ipratropium/albuterol 3ml nebule NEB ONE (10:30)
[2018-02-03 11:41] VITALS: BP 138/59
== END 2018-02-03 11:42 | disposition home or self-care (01) ==
LOC: ER 08:33
DX: J44.1 Chronic obstructive pulmonary disease with (acute) exacerbation (principal); I48.91 Unspecified atrial fibrillation; Z88.6 Allergy status to analgesic agent; Z79.899 Other long term (current) drug therapy
CPT/HCPCS: 36415; 71046; 80053; 83880; 84484; 85025; 93005; 94640; 94760; 96374; 96375; 99284; J2270; J2405

== ENCOUNTER 2018-02-05 10:03 | Inpatient (IN) | payer MEDICARE, OTHER ==
[~2018-02-05] VITALS: Ht 175.3 cm; Wt 69.1 kg
[2018-02-05] MEDS ORDERED: azithromycin/NS 500mg/250ml 250 ML IV ONE (10:30)
[2018-02-05] MEDS ORDERED: normal saline 1000ML IV soln IV ONE (10:30)
[2018-02-05] MEDS ORDERED: CefTRIAXone 2gm/D5W 50ml 50 ML IV ONE (10:30)
[2018-02-05] MEDS ORDERED: fentaNYL/PF 50MCG/1 ML 2ML syringe IV ONE (10:30)
[2018-02-05] MEDS ORDERED: benzonatate 100mg capsule PO ONE (10:30)
[2018-02-05 11:31] LABS: BASOPHILS % (AUTO) 0 % (0-1); EOSINOPHILS # (AUTO) 0.1 X10'3 (0-0.9); HEMATOCRIT 44.4 % (42.0-52.0); HEMOGLOBIN 14.6 g/dl (14.0-17.9); LYMPHOCYTES # (AUTO) 0.2 X10'3 (1.1-4.8); MEAN CORPUSCULAR HGB CONC 32.8 % (33.0-36.5); MEAN CORPUSCULAR VOLUME 91.3 FL (78-98); MEAN PLATELET VOLUME 7.6 FL (7.4-10.4); MONOCYTES # (AUTO) 0.2 X10'3 (0-0.9); MONOCYTES % (AUTO) 1.7 % (2-12); NEUTROPHILS # (AUTO) 9.7 X10'3 (1.8-7.7); NEUTROPHILS % (AUTO) 95.3 % (42-75); PLATELET COUNT 275 X10'3 (140-440); RED BLOOD COUNT 4.86 X10'6 (4.70-6.10); WHITE BLOOD COUNT 10.2 X10'3 (4.5-11.0)
[2018-02-05 11:37] LABS: INR 0.9 INR; PARTIAL THROMBOPLASTIN TIME 21 SECONDS (22-32); PROTHROMBIN TIME 9.4 SECONDS (9.0-12.0)
[2018-02-05 11:47] LABS: ALANINE AMINOTRANSFERASE 66 U/L (12-78); ALBUMIN 3.5 G/DL (3.4-5.0); ALBUMIN/GLOBULIN RATIO 1.3 (1.1-1.5); ALKALINE PHOSPHATASE 187 IU/L (46-116); ANION GAP 1 (8-16); ASPARTATE AMINO TRANSFERASE 22 U/L (10-37); BLOOD UREA NITROGEN 20 MG/DL (7-18); BUN/CREATININE RATIO 23.3 (5.4-32.0); CHLORIDE 102 MMOL/L (99-107); CREATININE 0.86 MG/DL (0.60-1.10); GLUCOSE 209 MG/DL (70-104); MAGNESIUM 2.6 MG/DL (1.5-2.4); POTASSIUM 4.9 MMOL/L (3.5-5.1); SODIUM 144 MMOL/L (135-145); TOTAL PROTEIN 6.1 G/DL (6.4-8.2); eGFR 88 ML/MIN
[2018-02-05 11:48] LABS: TOTAL CARBON DIOXIDE 40.9 MMOL/L (24-32)
[2018-02-05 12:41] LABS: ABG OXYGEN SATURATION 94.8 % (95-98); ABG PCO2 (T) 52.6 mmHg (35.0-48.0); ABG PH (T) 7.416 (7.350-7.450); ABG PO2 (T) 74.3 mmHg (83-108); ALLEN'S TEST Positive; FLOW 2 L/min; FMetHb 0.3 % (0.3-1.12); FO2Hb 93.6 % (94-100); TOTAL HEMOGLOBIN 13.4 G/dl (14.0-18.0)
[2018-02-05] MEDS ORDERED: methylPREDNISolone sod succ 125mg/2ml vial IV ONE (12:50)
[2018-02-05] MEDS ORDERED: potassium Cl 40MEQ/NS 500ml 500 ML IV PRN ×2 (13:25)
[2018-02-05] MEDS ORDERED: magnesium Cl slow-release 64mg tablet PO PRN (13:25)
[2018-02-05] MEDS ORDERED: potassium Cl 20 mEq SR tablet PO PRN ×2 (13:25)
[2018-02-05] MEDS ORDERED: acetaminophen 325mg tablet PO PRN (13:25)
[2018-02-05] MEDS ORDERED: magnesium 4gm in 100ml NS 100 ML IV PRN (13:25)
[2018-02-05] MEDS ORDERED: ondansetron/PF 4mg/2ml inj IV PRN (13:25)
[2018-02-05] MEDS ORDERED: albuterol 2.5 MG/3 ML nebule NEB PRN (13:25)
[2018-02-05 14:36] LABS: CLARITY,URINE CLEAR (Clear); COLOR,URINE YELLOW (Yellow); GLUCOSE, URINE 250 mg/dl (Neg); KETONES,URINE NEGATIVE (Neg); LEUKOCYTE ESTERASE ,URINE NEGATIVE (Neg); NITRITES, URINE NEGATIVE (Neg); OCCULT BLOOD,URINE NEGATIVE (Neg); PROTEIN,URINE NEGATIVE (Neg); UROBILINOGEN,URINE 0.2 E.U/dL (0.2-1.0)
[2018-02-05 14:38] LABS: UA COLLECTION TYPE CLN CATCH MIDSTREAM
[2018-02-05] MEDS: albuterol 2.5 MG/3 ML nebule NEB SCH ×2 (15:47→21:18)
[2018-02-05 17:00] VITALS: BP 132/66
[2018-02-05] MEDS ORDERED: morphine 4 MG/ML inj SYRINge IV ONE (18:05)
[2018-02-05 19:00] VITALS: BP 93/71
[2018-02-05] MEDS: HYDROcodone/acetaminophen 10/325mg tab PO PRN (19:51)
[2018-02-05] MEDS: heparin, porcine 5000 units/ml vial SQ SCH (19:56)
[2018-02-05 20:00] VITALS: BP 136/106
[2018-02-06] VITALS: BP 134/81
[2018-02-06] MEDS: cefepime 1GM/NS ADD-VANTAGE 100 ML IV SCH ×2 (01:53→11:18)
[2018-02-06] MEDS: albuterol 2.5 MG/3 ML nebule NEB SCH ×2 (03:01→09:06)
[2018-02-06] MEDS: HYDROcodone/acetaminophen 10/325mg tab PO PRN ×2 (03:03→09:18)
[2018-02-06 05:58] LABS: ALBUMIN 2.9 G/DL (3.4-5.0); ANION GAP 4 (8-16); BLOOD UREA NITROGEN 17 MG/DL (7-18); BUN/CREATININE RATIO 22.1 (5.4-32.0); CALCIUM 8.8 MG/DL (8.5-10.1); CHLORIDE 103 MMOL/L (99-107); CREATININE 0.77 MG/DL (0.60-1.10); GLUCOSE 226 MG/DL (70-104); MAGNESIUM 2.2 MG/DL (1.5-2.4); POTASSIUM 4.3 MMOL/L (3.5-5.1); SODIUM 142 MMOL/L (135-145); TOTAL CARBON DIOXIDE 35.2 MMOL/L (24-32); eGFR > 90 ML/MIN
[2018-02-06 06:08] LABS: BASOPHILS % (AUTO) 0 % (0-1); EOSINOPHILS # (AUTO) 0.1 X10'3 (0-0.9); EOSINOPHILS % (AUTO) 0.6 % (0-6); HEMATOCRIT 37.9 % (42.0-52.0); HEMOGLOBIN 12.5 g/dl (14.0-17.9); LYMPHOCYTES # (AUTO) 0.3 X10'3 (1.1-4.8); LYMPHOCYTES % (AUTO) 3.1 % (21-51); MEAN CORPUSCULAR HEMOGLOBIN 30.3 PG (27.0-31.0); MEAN CORPUSCULAR HGB CONC 32.9 % (33.0-36.5); MEAN CORPUSCULAR VOLUME 92.1 FL (78-98); MEAN PLATELET VOLUME 7.8 FL (7.4-10.4); MONOCYTES # (AUTO) 0.4 X10'3 (0-0.9); MONOCYTES % (AUTO) 4.7 % (2-12); NEUTROPHILS # (AUTO) 8.3 X10'3 (1.8-7.7); NEUTROPHILS % (AUTO) 91.6 % (42-75); PLATELET COUNT 238 X10'3 (140-440); RED BLOOD COUNT 4.12 X10'6 (4.70-6.10); WHITE BLOOD COUNT 9.1 X10'3 (4.5-11.0)
[2018-02-06 07:17] VITALS: BP 134/69
[2018-02-06] MEDS ORDERED: pantoprazole 40mg Tablet.DR PO SCH (07:30)
[2018-02-06] MEDS: heparin, porcine 5000 units/ml vial SQ SCH (07:43)
[2018-02-06] MEDS ORDERED: azithromycin/NS 500mg/250ml 250 ML IV SCH (08:00)
[2018-02-06] MEDS ORDERED: K and/or MAG REPLACEMENT MC SCH (08:00)
[2018-02-06] MEDS ORDERED: methylPREDNISolone sod succ 125mg/2ml vial IV SCH (08:55)
[2018-02-07] MEDS ORDERED: ORPH100T2 PO (12:27)
[2018-02-07] MEDS ORDERED: HYDR-4353 PO (12:27)
== END 2018-02-06 13:30 | disposition left against medical advice (07) | DRG 190 ==
LOC: ER 10:04 → ED HOLD 13:25 → SUR 3N 16:52
PROVIDERS: ADMIT Internal Medicine; ATTEND Family Medicine
DX: J44.1 Chronic obstructive pulmonary disease with (acute) exacerbation (principal); J96.20 Acute and chronic respiratory failure, unspecified whether with hypoxia or hypercapnia; I48.2 Chronic atrial fibrillation; E78.5 Hyperlipidemia, unspecified; F17.210 Nicotine dependence, cigarettes, uncomplicated; F32.9 Major depressive disorder, single episode, unspecified; F41.9 Anxiety disorder, unspecified; I10 Essential (primary) hypertension; K21.9 Gastro-esophageal reflux disease without esophagitis; R60.0 Localized edema; Z66 Do not resuscitate; Z53.21 Procedure and treatment not carried out due to patient leaving prior to being seen by health care provider; Z79.899 Other long term (current) drug therapy; Z88.6 Allergy status to analgesic agent; Z99.81 Dependence on supplemental oxygen
CPT/HCPCS: 36415; 36600; 71045; 80048; 80053; 81003; 82803; 83605; 83735; 83880; 84145; 85018; 85025; 85610; 85730; 87040; 87070; 93005; 94640; 94760; 96374; 96375; 99285; G0378; J0456; J0692; J0696; J1644; J2270; J2930; J3010

== ENCOUNTER 2018-02-07 11:15 | Emergency (ER) | payer MEDICARE, OTHER ==
[~2018-02-07] VITALS: Ht 175.3 cm; Wt 69.0 kg
[2018-02-07 11:16] VITALS: BP 147/92
[2018-02-07] MEDS ORDERED: orphenadrine citrate 60mg/2ml inj. IM ONE (11:25)
[2018-02-07] MEDS ORDERED: HYDROcodone/acetaminophen 10/325mg tab PO ONE (11:25)
[2018-02-07] MEDS ORDERED: morphine 4 MG/ML inj SYRINge IM ONE (11:25)
[2018-02-07] MEDS ORDERED: ondansetron 4mg rapidly disintigrating tab PO ONE (11:25)
[2018-02-07] MEDS ORDERED: ORPH100T2 PO (12:27)
[2018-02-07] MEDS ORDERED: HYDR-4353 PO (12:27)
== END 2018-02-07 12:41 | disposition home or self-care (01) ==
LOC: ER 11:15
DX: M62.830 Muscle spasm of back (principal); R60.0 Localized edema; I48.91 Unspecified atrial fibrillation; J44.9 Chronic obstructive pulmonary disease, unspecified; Z87.01 Personal history of pneumonia (recurrent); Z88.5 Allergy status to narcotic agent; Z79.82 Long term (current) use of aspirin; Z79.899 Other long term (current) drug therapy; Z99.81 Dependence on supplemental oxygen
CPT/HCPCS: 96372; 99283; J2270; J2360

== ENCOUNTER 2018-02-09 19:50 | Inpatient (IN) | payer MEDICARE, OTHER ==
[~2018-02-09] VITALS: Ht 175.3 cm; Wt 69.1 kg
[~2018-02-09 19:50] MED LIST changes: +HYDR-4353 PO; +ORPH100T2 PO
[2018-02-09 20:30] LABS: ALANINE AMINOTRANSFERASE 76 U/L (12-78); ALBUMIN 3.3 G/DL (3.4-5.0); ALBUMIN/GLOBULIN RATIO 1.2 (1.1-1.5); ALKALINE PHOSPHATASE 217 IU/L (46-116); ANION GAP 4 (8-16); ASPARTATE AMINO TRANSFERASE 26 U/L (10-37); BLOOD UREA NITROGEN 16 MG/DL (7-18); BUN/CREATININE RATIO 19.5 (5.4-32.0); CALCIUM 7.9 MG/DL (8.5-10.1); CHLORIDE 102 MMOL/L (99-107); CREATININE 0.82 MG/DL (0.60-1.10); GLUCOSE 147 MG/DL (70-104); POTASSIUM 4.1 MMOL/L (3.5-5.1); SODIUM 143 MMOL/L (135-145); TOTAL CARBON DIOXIDE 37.2 MMOL/L (24-32); eGFR > 90 ML/MIN
[2018-02-09 20:31] LABS: BASOPHILS % (AUTO) 0 % (0-1); EOSINOPHILS # (AUTO) 0.3 X10'3 (0-0.9); HEMATOCRIT 44.6 % (42.0-52.0); HEMOGLOBIN 14.9 g/dl (14.0-17.9); LYMPHOCYTES # (AUTO) 1.2 X10'3 (1.1-4.8); LYMPHOCYTES % (AUTO) 8.8 % (21-51); MEAN CORPUSCULAR HEMOGLOBIN 30.8 PG (27.0-31.0); MEAN CORPUSCULAR HGB CONC 33.4 % (33.0-36.5); MEAN CORPUSCULAR VOLUME 92.4 FL (78-98); MEAN PLATELET VOLUME 7.8 FL (7.4-10.4); MONOCYTES # (AUTO) 0.5 X10'3 (0-0.9); MONOCYTES % (AUTO) 3.5 % (2-12); NEUTROPHILS # (AUTO) 12.1 X10'3 (1.8-7.7); NEUTROPHILS % (AUTO) 85.7 % (42-75); PLATELET COUNT 247 X10'3 (140-440); RED BLOOD COUNT 4.83 X10'6 (4.70-6.10); RED CELL DISTRIBUTION WIDTH 15.2 % (11.5-14.5); WHITE BLOOD COUNT 14.1 X10'3 (4.5-11.0)
[2018-02-09] MEDS ORDERED: temazepam 15mg capsule PO PRN (21:00)
[2018-02-09] MEDS ORDERED: azithromycin/NS 500mg/250ml 250 ML IV ONE (21:05)
[2018-02-09] MEDS ORDERED: albuterol 2.5 MG/3 ML nebule CONTNEB PRN (21:05)
[2018-02-09] MEDS ORDERED: cefepime 1GM/NS ADD-VANTAGE 100 ML IV ONE (21:05)
[2018-02-09] MEDS ORDERED: albuterol 2.5 MG/3 ML nebule NEB ONE (21:05)
[2018-02-09] MEDS ORDERED: methylPREDNISolone sod succ 125mg/2ml vial IV ONE (21:05)
[2018-02-09 21:35] LABS: ABG BASE EXCESS 10.1 mmol/L (-2.0-3.0); ABG HCO3 38.7 mmol/L (22.0-26.0); ABG OXYGEN SATURATION 98.7 % (95-98); ABG PCO2 (T) 70.7 mmHg (35.0-48.0); ABG PH (T) 7.356 (7.350-7.450); ABG PO2 (T) 159.4 mmHg (83-108); ALLEN'S TEST Positive; FCOHb 1.2 % (0.5-1.5); FLOW 10 L/min; FMetHb 0.2 % (0.3-1.12); FO2Hb 97.3 % (94-100); PATIENT TEMPERATURE 36.8; TOTAL HEMOGLOBIN 14.4 G/dl (14.0-18.0)
[2018-02-09 21:37] LABS: MAGNESIUM 2.1 MG/DL (1.5-2.4)
[2018-02-09] MEDS ORDERED: morphine 4 MG/ML inj SYRINge IV ONE (22:25)
[2018-02-09] MEDS ORDERED: normal saline 1000ml 1,000 ML IV SCH (23:18)
[2018-02-09] MEDS ORDERED: acetaminophen 325mg tablet PO PRN ×2 (23:20)
[2018-02-09] MEDS ORDERED: HYDROcodone/acetaminophen 10/325mg tab PO PRN (23:20)
[2018-02-09] MEDS ORDERED: magnesium hydroxide 30ml (MOM) UD suspension PO PRN (23:20)
[2018-02-09] MEDS ORDERED: ondansetron/PF 4mg/2ml inj IV PRN (23:20)
[2018-02-09] MEDS ORDERED: HYDROmorphone 1 mg/ml syringe IV PRN (23:20)
[2018-02-09] MEDS ORDERED: diphenhydrAMINE 25mg capsule PO PRN (23:20)
[2018-02-09] MEDS ORDERED: diphenhydrAMINE 50 mg/ml inj IV PRN (23:20)
[2018-02-09] MEDS ORDERED: morphine 4 MG/ML inj SYRINge IV PRN (23:20)
[2018-02-09] MEDS ORDERED: metoclopramide 5 mg/ml inj IV PRN (23:20)
[2018-02-09] MEDS ORDERED: bisacodyl 10mg suppository rectal RC PRN (23:20)
[2018-02-09] MEDS ORDERED: acetaminophen 650mg rectal suppository RC PRN (23:20)
[2018-02-09] MEDS ORDERED: mag hydrox/Alum hydrox/simeth 30ml oral suspension PO PRN (23:20)
[2018-02-09 23:53] LABS: HEMOGLOBIN A1C 6.2 % (4.5-6.2)
[2018-02-10 00:04] LABS: PHOSPHORUS 4.2 MG/DL (2.3-4.5)
[2018-02-10 02:46] LABS: ABG BASE EXCESS 6.9 mmol/L (-2.0-3.0); ABG HCO3 34.6 mmol/L (22.0-26.0); ABG OXYGEN SATURATION 93.9 % (95-98); ABG PCO2 (T) 61.7 mmHg (35.0-48.0); ABG PH (T) 7.366 (7.350-7.450); ABG PO2 (T) 67.2 mmHg (83-108); ALLEN'S TEST Positive; FCOHb 0.7 % (0.5-1.5); FMetHb 0.1 % (0.3-1.12); FO2Hb 93.1 % (94-100); PATIENT TEMPERATURE 36.8; RESPIRATORY RATE 16 b/min; TOTAL HEMOGLOBIN 14.9 G/dl (14.0-18.0)
[2018-02-10] MEDS ORDERED: ipratropium/albuterol 3ml nebule NEB PRN (03:00)
[2018-02-10] MEDS ORDERED: HYDR-4383 PO (04:40)
[2018-02-10 07:29] LABS: BASOPHILS % (AUTO) 0 % (0-1); EOSINOPHILS # (AUTO) 0.3 X10'3 (0-0.9); EOSINOPHILS % (AUTO) 1.5 % (0-6); HEMATOCRIT 42.6 % (42.0-52.0); HEMOGLOBIN 14.1 g/dl (14.0-17.9); LYMPHOCYTES # (AUTO) 0.2 X10'3 (1.1-4.8); LYMPHOCYTES % (AUTO) 1.4 % (21-51); MEAN CORPUSCULAR HEMOGLOBIN 30.7 PG (27.0-31.0); MEAN CORPUSCULAR HGB CONC 33.2 % (33.0-36.5); MEAN CORPUSCULAR VOLUME 92.6 FL (78-98); MEAN PLATELET VOLUME 7.5 FL (7.4-10.4); MONOCYTES # (AUTO) 0.2 X10'3 (0-0.9); MONOCYTES % (AUTO) 1.2 % (2-12); NEUTROPHILS # (AUTO) 16.4 X10'3 (1.8-7.7); NEUTROPHILS % (AUTO) 95.9 % (42-75); PLATELET COUNT 201 X10'3 (140-440); WHITE BLOOD COUNT 17.1 X10'3 (4.5-11.0)
[2018-02-10] MEDS ORDERED: pantoprazole 40mg Tablet.DR PO SCH (07:30)
[2018-02-10 07:43] LABS: ALANINE AMINOTRANSFERASE 70 U/L (12-78); ALBUMIN 3.1 G/DL (3.4-5.0); ALBUMIN/GLOBULIN RATIO 1.2 (1.1-1.5); ALKALINE PHOSPHATASE 184 IU/L (46-116); ANION GAP 4 (8-16); ASPARTATE AMINO TRANSFERASE 22 U/L (10-37); BILIRUBIN,TOTAL 1.2 MG/DL (0.1-1.0); BLOOD UREA NITROGEN 19 MG/DL (7-18); BUN/CREATININE RATIO 24.4 (5.4-32.0); CALCIUM 8.1 MG/DL (8.5-10.1); CHLORIDE 100 MMOL/L (99-107); CHOL/HDL RATIO 1.7 (0.00-4.99); CHOLESTEROL 186 MG/DL (0-200); CREATININE 0.78 MG/DL (0.60-1.10); GLUCOSE 250 MG/DL (70-104); HDL CHOLESTEROL 112 MG/DL (35-60); LDL CHOLESTEROL 71 MG/DL (50-100); POTASSIUM 4.7 MMOL/L (3.5-5.1); SODIUM 140 MMOL/L (135-145); TOTAL CARBON DIOXIDE 36.3 MMOL/L (24-32); TOTAL PROTEIN 5.7 G/DL (6.4-8.2); TRIGLYCERIDES 46 MG/DL (20-135); eGFR > 90 ML/MIN
[2018-02-10] MEDS ORDERED: heparin, porcine 5000 units/ml vial SQ SCH (08:00)
[2018-02-10] MEDS ORDERED: diazepam 2mg tablet PO SCH (08:00)
[2018-02-10] MEDS ORDERED: budesonide 0.5mg/2ml UD nebule IH SCH (08:00)
[2018-02-10] MEDS ORDERED: non-formulary drug (Budesonide/Formoterol Fumarate (Symbicort 160-4.5 Mcg Inhaler) 2 PUFFS INH SCH (08:00)
[2018-02-10] MEDS ORDERED: methylPREDNISolone sod succ 125mg/2ml vial IV SCH (08:00)
[2018-02-10] MEDS ORDERED: CefTRIAXone/D5W-Rocephin 1gm 50 ML IV SCH (08:00)
[2018-02-10] MEDS ORDERED: ipratropium/albuterol 3ml nebule IH SCH (08:00)
[2018-02-10] MEDS ORDERED: buPROPion SR 150mg tablet PO SCH (08:00)
[2018-02-10] MEDS ORDERED: docusate sod 100mg capsule PO SCH ×2 (08:00)
[2018-02-10] MEDS ORDERED: busPIRone 5mg tablet PO SCH (08:00)
[2018-02-10] MEDS ORDERED: atorvastatin 20mg tablet PO SCH (08:00)
[2018-02-10 08:46] VITALS: BP 142/77
[2018-02-10] MEDS ORDERED: albuterol 2.5 MG/3 ML nebule NEB SCH (09:00)
[2018-02-10] MEDS ORDERED: PRED10TA23 PO (11:31)
[2018-02-10] MEDS ORDERED: CEPH500C5 PO (11:31)
[2018-02-10] MEDS ORDERED: ASPI-1264 PO (11:33)
[2018-02-10] MEDS ORDERED: azithromycin/NS 500mg/250ml 250 ML IV SCH (21:00)
== END 2018-02-10 12:35 | disposition home or self-care (01) | DRG 871 ==
LOC: ER 19:50 → ED HOLD 23:18 → PCU 3S 02-10 08:30
PROVIDERS: ADMIT Family Medicine; ATTEND Internal Medicine
PROC: 5A09357 Assistance with Respiratory Ventilation, Less than 24 Consecutive Hours, Continuous Positive Airway Pressure (ICD-10-PCS; principal; 2018-02-09)
DX: A41.9 Sepsis, unspecified organism (principal); J96.22 Acute and chronic respiratory failure with hypercapnia; E87.2 Acidosis; J44.0 Chronic obstructive pulmonary disease with (acute) lower respiratory infection; J44.1 Chronic obstructive pulmonary disease with (acute) exacerbation; F41.0 Panic disorder [episodic paroxysmal anxiety]; I48.91 Unspecified atrial fibrillation; J20.9 Acute bronchitis, unspecified; Z99.81 Dependence on supplemental oxygen; Z88.6 Allergy status to analgesic agent; Z79.899 Other long term (current) drug therapy; Z87.891 Personal history of nicotine dependence
CPT/HCPCS: 36415; 36600; 71045; 80053; 80061; 82803; 83036; 83605; 83735; 83880; 84100; 84145; 84443; 84484; 85018; 85025; 87040; 93005; 94640; 94660; 94760; 96365; 96366; 96368; 96375; 99291; G0378; J0456; J0692; J0696; J2270; J2930; J7030